=== PATIENT | female | born 1990 | race Caucasian/White ===

== ENCOUNTER 2021-08-22 08:20 | Day surgery (SDC) | payer OTHER ==
[2021-08-22] MEDS ORDERED: CLINDAMYCIN-D5W 900 MG/50 ML*** 900 MG/50 ML BAG IV ONE (09:16)
[2021-08-22] MEDS ORDERED: CLINDAMYCIN-D5W 900 MG/50 ML*** 900 MG/50 ML BAG IV STA (09:20)
[2021-08-22] MEDS ORDERED: Lactated Ringers 1,000 ML IV SCH (09:30)
[2021-08-22] MEDS ORDERED: Zofran 4 MG/2 ML VIAL ONE (10:25)
[2021-08-22] MEDS ORDERED: Versed 2 MG/2 ML Injection ONE (10:25)
[2021-08-22] MEDS ORDERED: Decadron 4 MG INJ ONE (10:25)
[2021-08-22] MEDS ORDERED: TORAdol 30 mg Injection ONE (10:25)
[2021-08-22] MEDS ORDERED: Xylocaine-Mpf 2% 5 Ml Vial ONE (10:25)
[2021-08-22] MEDS ORDERED: SUBLIMAZE 100 MCG/2 ML ONE (10:25)
[2021-08-22] MEDS ORDERED: DIPRIVAN 200 MG/20 ML IV ONE (10:25)
[2021-08-22] MEDS ORDERED: Compazine 10 MG/2 ML ONE (11:20)
[2021-08-22 12:33] VITALS: BP 116/67; PULSE 71; O2SAT 97
--- NOTE | 2021-08-23 09:16 | OP ---
SURGERY DATE/TIME: 08/22/2021 1032 PREOPERATIVE DIAGNOSIS: Menorrhagia. POSTOPERATIVE DIAGNOSIS: Menorrhagia. PROCEDURE: Hysteroscopy, D&C with NovaSure ablation. SURGEON: Shree Al D.O. MATERIALS RESEARCH ENGINEER: Linda Coyle director medical surgical. ANESTHESIA: General. ESTIMATED BLOOD LOSS: Minimal. COMPLICATIONS: None. INDICATIONS: The risks, benefits, indications and alternatives of the procedure were reviewed with the patient prior to the procedure. The patient understood the risk of infection, bleeding, bowel injury, bladder injury, ureteral injury, uterine perforation associated with the surgery however desires to have this surgery as a possible means to alleviate her current medical condition. DESCRIPTION OF PROCEDURE AND FINDINGS: At this point the patient is taken to the operating room, given general sedation, placed in dorsal lithotomy position, prepped and draped in the usual sterile fashion. A weighted speculum is then placed in the patient's vagina and the anterior lip of the cervix is grasped with a single tooth tenaculum. Endocervical dilators were advanced through the endocervical canal as a means to dilate the cervix and the uterus was sounded to approximately 9 cm. From this point, a 5 mm hysteroscope was then placed in through the endocervical region where visualization of the uterine cavity appeared to be within normal limits. From this point, the hysteroscope was removed and a curette was then placed into the fundus of the uterus where curettage was performed in all quadrants of the uterus retrieving a moderate amount of tissue. From this point, there was minimal bleeding that was noted. From this point the NovaSure was then introduced in through the endocervical canal towards the fundal region retracted approximately 1 cm and the machine was engaged and was turned on for an ablative time of 1 minute and 3 seconds. The length of the instrument was at 6.5 cm and the width was 4.6 cm. After complete ablation at 1 minute and 3 seconds, the instrument was then disengaged and removed from the uterine cavity. From this point, all instruments were removed from the patient's vaginal region. The patient was then out of the dorsal lithotomy position, was taken out of anesthesia and was then taken to the recovery room in stable condition. All instruments and laps were accounted for x2.
== END 2021-08-22 12:35 | disposition home or self-care (01) ==
LOC: SDC 08:20
PROVIDERS: ATTEND Obstetrics & Gynecology
DX: N92.0 Excessive and frequent menstruation with regular cycle (principal)
CPT/HCPCS: 84703; 88305; J1100; J1885; J2250; J2405; J2704; J3010